=== PATIENT | female | born 1980 | race Caucasian/White ===

== ENCOUNTER 2017-02-25 14:32 | Emergency (ER) | payer BC, MEDICAID ==
[~2017-02-25] VITALS: Ht 160 cm; Wt 80.7 kg
[~2017-02-25 14:32] MED LIST: CIPRO500 MG PO; PROAIR HFA0.09 MG/Ac IH; ULTRAM50 MG PO
[2017-02-25 14:36] VITALS: BP 156/90
--- NOTE | 2017-02-25 15:00 | NUR ---
Patient ambulated to bed 4. RN evaluating patient at bedside.
--- NOTE | 2017-02-25 15:05 | NUR ---
37F BIB FAMILY C/O PAINFUL URINATION, FREQUENCY, RETENTION X 2 WEEKS, W/ WORSENING SYMPTOMS 2 HOURS AGO PRIOR TO ARRIVAL TO ER; PT C/O SUPRAPUBIC PAIN, ACHING, NON-RADIATING, 9/10 X TODAY; PT A&OX4, PERRLA, BL LUNG SOUNDS CLEAR, RR EVEN/UNLABORED, SKIN IS WARM/DRY/INTACT AT THIS TIME; PT DENIES N/V/D AT THIS TIME; PT RESTING IN BED W/ HOB ELEVATED AND IN LOWEST POSITION; POSITIONED FOR COMFORT; ER MD MADE AWARE OF STATUS. WILL CONTINUE TO MONITOR.
--- NOTE | 2017-02-25 16:00 | NUR ---
PT APPEARS TO BE RESTING COMFORTABLY IN BED; NO ACUTE DISTRESS NOTED AT THIS TIME; VSS; RR EVEN/UNLABORED; WILL CONTINUE TO MONITOR.
[2017-02-25 16:44] VITALS: BP 145/89
--- NOTE | 2017-02-25 16:44 | NUR ---
Patient discharged with v/s stable. Written and verbal after care instructions given and explained. Patient alert, oriented and verbalized understanding of instructions. Ambulatory with to car. All questions addressed prior to discharge. ID band removed. Patient advised to follow up with PMD. Rx of NORCO 5MG-325MG TAB & MOTRIN 600MG TAB given. Patient educated on indication of medication including possible reaction and side effects. Opportunity to ask questions provided and answered.
== END 2017-02-25 16:44 | disposition home or self-care (01) ==
LOC: MED 14:32
DX: R30.0 Dysuria (principal); R10.30 Lower abdominal pain, unspecified; R31.9 Hematuria, unspecified; J45.909 Unspecified asthma, uncomplicated; Z90.710 Acquired absence of both cervix and uterus

== ENCOUNTER 2019-08-02 14:14 | Emergency (ER) | payer BC, MEDICAID ==
[~2019-08-02] VITALS: Ht 165.1 cm; Wt 77.1 kg
[~2019-08-02 14:14] MED LIST changes: +ALBU-136 IH; +CIPR500T4 PO; -CIPRO500 MG PO; -PROAIR HFA0.09 MG/Ac IH; +TRAM50TA1 PO; -ULTRAM50 MG PO
[2019-08-02 14:21] VITALS: BP 150/90
--- NOTE | 2019-08-02 14:21 | NUR ---
PT TAKEN TO ER BED 9
[2019-08-02] MEDS ORDERED: ALBUTEROL SULFATE/IPRATROPIU 3 ML SOL IH ONE ×2 (14:45→15:10)
[2019-08-02] MEDS ORDERED: ALBUTEROL 0.083% 2.5 MG/3 ML NEBU INH ONE ×2 (14:45→15:10)
[2019-08-02] MEDS ORDERED: predniSONE 20 MG TAB PO ONE (14:45)
--- NOTE | 2019-08-02 14:46 | NUR ---
C/O RECENT COLD SYMPTOMS AND MILD WHEEZING X 2-3 DAYS; INHALOR INEFFECTIVE AT THIS TIME. FULL CLEAR SPEECH
[2019-08-02 15:41] VITALS: BP 150/90
--- NOTE | 2019-08-02 15:44 | NUR ---
Patient discharged with v/s stable. Written and verbal after care instructions given and explained. Patient alert, oriented and verbalized understanding of instructions. Ambulatory with steady gait. All questions addressed prior to discharge. ID band removed. Patient advised to follow up with PMD. Rx of MOTRIN/PREDNISONE given. Patient educated on indication of medication including possible reaction and side effects. Opportunity to ask questions provided and answered.
== END 2019-08-02 15:44 | disposition home or self-care (01) ==
LOC: MED 14:14
DX: R06.02 Shortness of breath (principal); J02.9 Acute pharyngitis, unspecified; R05 Cough; I10 Essential (primary) hypertension; J45.909 Unspecified asthma, uncomplicated; Z79.899 Other long term (current) drug therapy; Z90.710 Acquired absence of both cervix and uterus; Z98.890 Other specified postprocedural states
CPT/HCPCS: 94640; 99283; J7512; J7613; J7620